=== PATIENT | female | born 1995 | race Asian ===

== ENCOUNTER 2019-03-27 11:33 | Outpatient (CLI) | payer MEDICAID ==
--- NOTE | 2019-03-27 12:23 | Non Stress Test Report ---
Non Stress Test Datetime Report Generated by CPN: 03/27/2019 12:23 DEMOGRAPHIC EGA NST: 40.1 INDICATION Indication for Study: Ordered by Provider MONITORING Monitor Explained: Monitor Explained; Test Explained; Patient Verbalized Understanding Time on Monitor: 03/27/2019 11:48 Time off Monitor: 03/27/2019 12:21 NST Duration: 33 NST INTERVENTIONS NST Interventions: None Physician Notified NST: K Cruz CNM BABY A: [id number] BABY A Movement : Present Contraction Frequency : rare Contraction Frequency : irregular FHR Baseline : 130 FHR Baseline : 135 Accelerations : 15X15 Decelerations : None Variability : Moderate 6-25bpm NST Review: Meets Criteria for Reactive NST NST Review: Meets Criteria for Reactive NST NST Review and Verified By : Lauri John RN NST Results: Reactive NST REPORT Report Trigger: Send Report
[2019-03-27 12:25] LABS: APPEARANCE,URINE SLIGHTLY-CLOUDY; BILIRUBIN,URINE NEGATIVE (NEGATIVE); COLOR,URINE YELLOW; GLUCOSE, URINE NEGATIVE (NEGATIVE); KETONES,URINE NEGATIVE (NEGATIVE); LEUKOCYTE ESTERASE,URINE LARGE (NEGATIVE); NITRITE,URINE NEGATIVE (NEGATIVE); PROTEIN,URINE NEGATIVE (NEGATIVE); UROBILINOGEN,URINE NEGATIVE mg/dL (<2.0)
[2019-03-27 12:48] LABS: URINE AMPHETAMINES SCREEN NEGATIVE; URINE BARBITURATES SCREEN NEGATIVE; URINE BENZODIAZEPINES SCREEN NEGATIVE; URINE COCAINE SCREEN NEGATIVE; URINE MARIJUANA (THC) SCREEN NEGATIVE; URINE METHADONE SCREEN NEGATIVE; URINE PHENCYCLIDINE SCREEN NEGATIVE
== END 2019-03-27 12:34 | disposition home or self-care (01) ==
LOC: LC 11:33
PROVIDERS: ATTEND Student in an Organized Health Care Education/Training Program
PROC: 4A1HXCZ Monitoring of Products of Conception, Cardiac Rate, External Approach (ICD-10-PCS; principal; 2019-03-27)
DX: O36.8130 Decreased fetal movements, third trimester, not applicable or unspecified (principal); O48.0 Post-term pregnancy; Z3A.40 40 weeks gestation of pregnancy
CPT/HCPCS: 59025; 80307; 81005

== ENCOUNTER 2019-03-29 10:27 | Inpatient (IN) | payer MEDICAID ==
[2019-03-29] MEDS ORDERED: RINGERS SOLUTION,LACTATED 1,000 ML IV ONE (10:47)
[2019-03-29] MEDS: RINGERS SOLUTION,LACTATED 1,000 ML IV PRN ×2 (11:04→14:05)
[2019-03-29 11:07] LABS: APPEARANCE,URINE SLIGHTLY-CLOUDY; BILIRUBIN,URINE NEGATIVE (NEGATIVE); COLOR,URINE YELLOW; GLUCOSE, URINE NEGATIVE (NEGATIVE); KETONES,URINE NEGATIVE (NEGATIVE); LEUKOCYTE ESTERASE,URINE MODERATE (NEGATIVE); NITRITE,URINE NEGATIVE (NEGATIVE); PROTEIN,URINE NEGATIVE (NEGATIVE); URINE SPECIFIC GRAVITY 1.019; UROBILINOGEN,URINE NEGATIVE mg/dL (<2.0)
[2019-03-29] MEDS ORDERED: NALBUPHINE HCL INJ 10 MG/1 ML AMPULE ONE ×2 (11:21→20:21)
[2019-03-29 11:24] LABS: ABSOLUTE BASOPHILS # (AUTO) 0.1 10^3/uL (0.0-0.2); ABSOLUTE EOSINOPHILS # (AUTO) 0.1 10^3/uL (0.0-0.6); ABSOLUTE LYMPHOCYTES (AUTO) 1.7 10^3/uL (0.5-4.7); ABSOLUTE MONOCYTES (AUTO) 0.7 10^3/uL (0.1-1.4); ABSOLUTE NEUT (AUTO) 11.1 10^3/uL (1.7-8.2); BASOPHILS % (AUTO) 0.4 % (0-2); EOSINOPHILS % (AUTO) 0.6 % (0-6); HEMATOCRIT 42.3 % (36.0-47.0); HEMOGLOBIN 14.2 g/dL (12.0-15.5); LYMPHOCYTES % (AUTO) 12.7 % (13-45); MEAN CORPUSCULAR HEMOGLOBIN 28.8 pg (27.0-33.4); MEAN CORPUSCULAR HGB CONC 33.4 g/dL (32.0-36.0); MEAN CORPUSCULAR VOLUME 86 fl (80-97); MONOCYTES % (AUTO) 5.2 % (3-13); PLATELET COUNT 258 10^3/uL (150-450); RED BLOOD COUNT 4.91 10^6/uL (3.72-5.28); RED CELL DISTRIBUTION WIDTH 14.9 % (11.5-14.0); SEGMENTED NEUTROPHILS % (AUTO) 81.1 % (42-78); TOTAL CELLS COUNTED % (AUTO) 100 %; WHITE BLOOD COUNT 13.7 10^3/uL (4.0-10.5)
[2019-03-29 11:50] LABS: URINE AMPHETAMINES SCREEN NEGATIVE; URINE BARBITURATES SCREEN NEGATIVE; URINE BENZODIAZEPINES SCREEN NEGATIVE; URINE COCAINE SCREEN NEGATIVE; URINE MARIJUANA (THC) SCREEN NEGATIVE; URINE METHADONE SCREEN NEGATIVE; URINE PHENCYCLIDINE SCREEN NEGATIVE
--- NOTE | 2019-03-29 12:17 | Admission Physical ---
Datetime Report Generated by CPN: 03/29/2019 12:16 CURRENT ADMISSION Chief Complaint: Uterine Contractions Indication for Induction: Not Applicable Admit Impression : Term, Intrauterine ; Active Labor; Intact Membranes Admit Plan: Admit to Unit; Initiate Labor Protocol ALLERGIES Medication Allergies: No Medication Allergies: No Known Allergies (03/29/2019) Latex: Unknown Food Allergies: shellfish? Environmental Allergies: n/a OBSTETRICAL HISTORY EDC: 03/26/2019 00:00 : 1 Para: 0 Term: 0 : 0 SAB: 0 IAB: 0 Ectopic: 0 Livin Cesareans: 0 VBACs: 0 Multiple Births: 0 Gestational Diabetes: No Rh Sensitization: No Incompetent Cervix: No SHAQ: No Infertility: No ART Treatment: No Uterine Anomaly: No IUGR: No Hx Previous C/S: No Macrosomia: No Hx Loss/Stillborn: No PIH: No Hx : No Placenta Previa/Abruption: No Depression/PP Depression: No PTL/PROM: No Post Hemorrhage: No Current Procedures: Ultrasound Obstetrical History Comments: G1-current SEE RECORDS Alcohol: No Marijuana : No Cocaine: No Other Illicit Drugs: No Cigarettes: Never Smoker. 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 INFECTIOUS HISTORY Gonorrhea: No Genital Herpes: No Chlamydia: No Tuberculosis: No Syphilis: No Hepatitis: No HIV/AIDS Exposure: No Rash or Viral Illness: No HPV: No PHYSICAL EXAM General: Normal HEENT: Normal Neurologic: Normal Thyroid: Deferred Heart: Normal Lungs: Normal Breast: Deferred Back: Normal Abdomen: Normal Genitourinary Exam: Normal Extremities: Normal DTRs: Normal Pelvic Type: Adequate Vital Signs: Reviewed VAGINAL EXAM Dilatation: 5 Effacement: 80 Station: -1 Contraction Comments: q 1-3 MEMBRANES Membranes: Intact FETUS A EGA: 40.3 Monitoring: External US FHR- Baseline: 125 Variability: Moderate 6-25bpm Accelerations: 15X15 Decelerations: None FHR Category: Category I Presentation: Vertex Admit Comment: 23yo at 40+3ega presents with regualr uterine ctx. Cvx now 5cm. Admit for active labor. GBS negative. Pt considering not obtaining epidural. From the 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 HTLV distribution data in that area is unreliable but is typically prevelant in population etc - HTLV ordered. Will discuss with NICU and staff as well as patient. late to care at 27wks. anticipate delivery PLANS FOR LABOR AND DELIVERY Labor and Delivery: None Pain Management: Epidural Feeding Preference: Breast Benefit of Breast Feed Discussed: Yes Circumcision: N/A INFORMED CONSENT Informed Consent Obtained: Vaginal Delivery; Risks, Benefits and Alternatives Discussed Signature: with User ID: [email or web address]
[2019-03-29] MEDS ORDERED: EPHEDRINE SULFATE INJ 50 MG/1 ML AMPULE ONE (13:54)
[2019-03-29] MEDS ORDERED: BUPIVACAINE HCL 0.25 % INJ/PF (2.5 MG/1 ML) 30 ML VIAL ONE (13:54)
[2019-03-29] MEDS ORDERED: FENTANYL/BUPIVACAINE/NS/PF 300 MCG/150 ML RTUINJ EPI ONE (13:54)
[2019-03-29] MEDS ORDERED: LIDOCAINE 1% INJ-PF (10 MG/ML) 30 ML SDV ONE (15:05)
[2019-03-29] MEDS ORDERED: MISOPROSTOL 0.2 MG TABLET ONE (15:05)
[2019-03-29] MEDS ORDERED: OXYTOCIN/NORMAL SALINE 20 UNIT/1,000 ML RTUINJ ONE (15:06)
[2019-03-29] MEDS ORDERED: FENTANYL CITRATE INJ/PF 100 MCG/2 ML AMPUL ONE (18:31)
[2019-03-29] MEDS ORDERED: MEASLES,MUMPS&RUBELLA VACC/PF 0.5 ML VIAL SUBCUT PRN (19:02)
[2019-03-29] MEDS ORDERED: PSEUDOEPHEDRINE HCL 30 MG TABLET PO PRN (19:02)
[2019-03-29] MEDS ORDERED: ZOLPIDEM TARTRATE 5 MG TABLET PO PRN (19:02)
[2019-03-29] MEDS ORDERED: DIPH/PERTUSS(ACELL)/TETANUS VAC/PF 0.5 ML SYR (>=10YO) IM PRN (19:02)
[2019-03-29] MEDS ORDERED: DIPHENHYDRAMINE HCL 25 MG CAPSULE PO PRN (19:02)
[2019-03-29] MEDS ORDERED: BENZOCAINE/MENTHOL AEROSOL SPRAY 56 ML TOP PRN (19:02)
[2019-03-29] MEDS ORDERED: PROMETHAZINE HCL 25 MG SUPP.RECT PR PRN (19:02)
[2019-03-29] MEDS ORDERED: DIBUCAINE 1% OINTMENT 56 GM TP PRN (19:02)
[2019-03-29] MEDS ORDERED: NA PHOS,M-B/NA PHOS,DI-BA (ADULT) 133 ML ENEMA PR PRN (19:02)
[2019-03-29] MEDS ORDERED: MISOPROSTOL 0.2 MG TABLET PR PRN (19:02)
[2019-03-29] MEDS ORDERED: PROMETHAZINE HCL INJ 25 MG/1 ML VIAL IV PRN (19:02)
[2019-03-29] MEDS ORDERED: OXYTOCIN/NORMAL SALINE 20 UNIT/1,000 ML RTUINJ IV PRN (19:02)
[2019-03-29] MEDS ORDERED: ACETAMINOPHEN WITH CODEINE #3 TABLET PO PRN ×2 (19:02)
[2019-03-29] MEDS ORDERED: PROMETHAZINE HCL 25 MG TABLET PO PRN (19:02)
[2019-03-29] MEDS ORDERED: GLYCERIN/WITCH HAZEL LEAF 1 EACH MED..WIPE TP PRN (19:02)
[2019-03-29] MEDS ORDERED: ACETAMINOPHEN 650 MG SUPP.RECT PR PRN (19:02)
[2019-03-29] MEDS ORDERED: MAGNESIUM HYDROXIDE SUSP 30 ML UDCUP PO PRN (19:02)
[2019-03-29] MEDS ORDERED: CEFAZOLIN 1 GM/D5W RTU 2 GM/100 ML RTUPB IV ONE (19:04)
[2019-03-29] MEDS ORDERED: IBUPROFEN 800 MG TABLET ONE (19:39)
[2019-03-29] MEDS ORDERED: ACETAMINOPHEN WITH CODEINE #3 TABLET ONE (19:39)
[2019-03-29] MEDS ORDERED: BENZOCAINE/MENTHOL AEROSOL SPRAY 56 ML ONE (20:16)
[2019-03-29] MEDS ORDERED: CEFAZOLIN 2 GM/D5W RTU 2 GM/50 ML RTUPB IV ONE (21:00)
[2019-03-29] MEDS: FAMOTIDINE 20 MG TABLET PO SCH (22:49)
[2019-03-29] MEDS: IBUPROFEN 800 MG TABLET PO SCH (22:50)
[2019-03-30] MEDS: IBUPROFEN 800 MG TABLET PO SCH ×3 (05:09→22:38)
[2019-03-30 06:50] LABS: HEMATOCRIT 34.8 % (36.0-47.0); MEAN CORPUSCULAR HEMOGLOBIN 28.8 pg (27.0-33.4); MEAN CORPUSCULAR HGB CONC 33.3 g/dL (32.0-36.0); MEAN CORPUSCULAR VOLUME 87 fl (80-97); PLATELET COUNT 239 10^3/uL (150-450); RED BLOOD COUNT 4.02 10^6/uL (3.72-5.28); RED CELL DISTRIBUTION WIDTH 14.4 % (11.5-14.0); WHITE BLOOD COUNT 14.6 10^3/uL (4.0-10.5)
[2019-03-30 06:56] LABS: HEMOGLOBIN 11.6 g/dL (12.0-15.5)
--- NOTE | 2019-03-30 09:31 | PDOC PROGRESS REPORT ---
Subjective-OB Progress Note for:: 03/30/19 Subjective: Doing ok, eating, kraft in place, still has not been out of bed, will get OOB today, breast feeding, Physical Exam (OB) Vital Signs: Temp Pulse Resp BP Pulse Ox 97.7 F 65 12 107/63 100 03/30/19 07:42 03/30/19 07:42 03/30/19 07:42 03/30/19 07:42 03/30/19 07:42 Intake & Output 03/29/19 03/30/19 03/31/19 06:59 06:59 06:59 Intake Total 377 Output Total 1978 Balance -1601 Weight 79.5 kg - Lochia Lochia Amount: Scant < 10 ml Lochia Color: Rubra/Red - Abdomen Description: Soft Hernia Present: No Fundal Description: Firm, Midline Fundal Height: u/u - u/2 Objective-Diagnostic Laboratory: 03/30/19 06:26 03/29/19 03/29/19 03/29/19 10:30 11:00 11:00 WBC 13.7 H RBC 4.91 Hgb 14.2 Hct 42.3 MCV 86 MCH 28.8 MCHC 33.4 RDW 14.9 H Plt Count 258 Seg Neutrophils % 81.1 H Urine Color YELLOW Urine Appearance SLIGHTLY-CLOUDY Urine pH 6.0 Ur Specific [place] 1.019 Urine Protein NEGATIVE Urine Glucose (UA) NEGATIVE Urine Ketones NEGATIVE Urine Blood MODERATE H Urine Nitrite NEGATIVE Ur Leukocyte Esterase MODERATE H Blood Type O POSITIVE Antibody Screen NEGATIVE 03/30/19 06:26 WBC 14.6 H RBC 4.02 Hgb 11.6 L D Hct 34.8 L MCV 87 MCH 28.8 MCHC 33.3 RDW 14.4 H Plt Count 239 Seg Neutrophils % Urine Color Urine Appearance Urine pH Ur Specific [place] Urine Protein Urine Glucose (UA) Urine Ketones Urine Blood Urine Nitrite Ur Leukocyte Esterase Blood Type Antibody Screen Assessment and Plan(PN) - Assessment and Plan (1) Obstetrical laceration, third degree Is this a current diagnosis for this admission?: Yes (2) Meconium in amniotic fluid Is this a current diagnosis for this admission?: Yes (3) Active labor at term Is this a current diagnosis for this admission?: Yes - Time Spent with Patient Time with patient: Less than 15 minutes Medications reviewed and adjusted accordingly: Yes - Disposition Anticipated Discharge: Home Within: within 24 hours
[2019-03-30] MEDS: FAMOTIDINE 20 MG TABLET PO SCH ×2 (10:11→22:38)
[2019-03-30] MEDS: PRENATAL VITAMIN W DHA CAPSULE PO SCH (10:11)
[2019-03-30] MEDS: FERROUS SULFATE 325 MG TABLET PO SCH ×2 (10:11→17:12)
[2019-03-30] MEDS: SENNOSIDES/DOCUSATE 8.6-50 MG 1 EACH TABLET PO SCH (10:11)
[2019-03-30] MEDS: DOCUSATE SODIUM 100 MG CAPSULE PO SCH ×2 (10:11→17:12)
[2019-03-31] MEDS: IBUPROFEN 800 MG TABLET PO SCH ×2 (05:32→14:03)
[2019-03-31 07:57] VITALS: BP 126/70
[2019-03-31] MEDS: PRENATAL VITAMIN W DHA CAPSULE PO SCH (10:03)
[2019-03-31] MEDS: FERROUS SULFATE 325 MG TABLET PO SCH ×2 (10:03→18:56)
[2019-03-31] MEDS: SENNOSIDES/DOCUSATE 8.6-50 MG 1 EACH TABLET PO SCH (10:03)
[2019-03-31] MEDS: DOCUSATE SODIUM 100 MG CAPSULE PO SCH ×2 (10:03→18:54)
[2019-03-31] MEDS: FAMOTIDINE 20 MG TABLET PO SCH (10:03)
--- NOTE | 2019-03-31 12:41 | PDOC DISCHARGE SUMMARY ---
Final Diagnosis Discharge Date: 03/31/19 - Final Diagnosis (1) Active labor at term Is this a current diagnosis for this admission?: Yes (2) Meconium in amniotic fluid Is this a current diagnosis for this admission?: Yes (3) Obstetrical laceration, third degree Is this a current diagnosis for this admission?: Yes Discharge Data - Discharge Medication Prescriptions: Docusate Sodium [Colace 100 mg Capsule] 100 mg PO BID #60 capsule Ibuprofen [Motrin 800 mg Tablet] 800 mg PO Q8HP PRN #90 tablet PRN Reason: Acetaminophen with Codeine [Tylenol #3 Tablet] 1 each PO Q4HP PRN #20 tablet PRN Reason: Home Medications: Vit,Calc76/Iron/Folic [Prenatabs Rx Tablet] 1 tab PO DAILY 03/27/19 Acetaminophen with Codeine [Tylenol #3 Tablet] 1 each PO Q4HP PRN #20 tablet 03/31/19 Docusate Sodium [Colace 100 mg Capsule] 100 mg PO BID #60 capsule 03/31/19 Ibuprofen [Motrin 800 mg Tablet] 800 mg PO Q8HP PRN #90 tablet 03/31/19 Procedures: NST Intrapartum Procedure(s): Spontaneous Vaginal Delivery Complication(s): Laceration-Perineal Laceration-Degree: 3rd - Diagnosis Test Laboratory: Temp Pulse Resp BP Pulse Ox 98.3 F 74 16 126/70 H 98 03/31/19 07:45 03/31/19 07:45 03/31/19 07:45 03/31/19 07:45 03/31/19 07:45 03/29/19 03/29/19 03/30/19 10:30 11:00 06:26 RBC 4.91 4.02 Hgb 14.2 11.6 L D Hct 42.3 34.8 L Urine Opiates Screen NEGATIVE - Discharge information/Instructions Discharge Activity: Balance Activity w/Rest, Pelvic Rest Discharge Diet: Regular Disposition: HOME, SELF-CARE Follow up with: [facility] in: 1, Weeks
--- NOTE | 2019-04-01 09:57 | Delivery Summary ---
Del Sum A-C Datetime Report Generated by CPN: 04/01/2019 09:57 DELIVERY PERSONNEL DELIVERY PERSONNEL: [id number] Delivery Doctor:: Amanda Rendon MD Labor and Delivery Nurse:: Zoey Hargrove RNnursing consultant Nurse:: PRETTY Rojas Nursery Nurse:: Griselda Junior RN Nursery Nurse:: Maritza Johnson RN Rn Cvor/ROTARY DRILL OPERATOR HELPER: Marly Lemon, ELECTRICAL ASSEMBLY TECHNICIAN MATERNAL INFORMATION Delivery Anesthesia: Epidural Medications After Delivery: Pitocin Bolus-Please Comment; Cytotec 1000mcg Per Rectum/Vagina Meds After Delivery Comment: Pitocin 20 units in 1000 ml nss open for bolus Delivery QBL: 631 Delivery QBL Comment: Total: 827 Maternal Complications: None Provider Comments: VFI delivered in TOY presentation. As nuchal cord was being reduced patient continued pushing and left shoulder caused perineal laceration to extend to 3rd degree. Shoulders and body delivered without difficulty. Cord doubly clamped and cut and to maternal abdomen for NRP. Placenta delivered intact spontaneously. FF at U. 3rd degree laceration repaired in usual fashion with good hemostasis. (Annotations: Data stored by N on behalf of user) LABOR SUMMARY EDC: 03/26/2019 00:00 No. Babies in Womb: 1 Attempted: No Labor Anesthesia: Epidural LABOR INFORMATION Reason for Induction: Not Applicable Onset of Labor: 03/28/2019 23:00 Complete Dilatation: 03/29/2019 16:46 Oxytocin: N/A Group B Beta Strep: negative Steroids Given: None Reason Steroids Not Administered: Not Applicable MEMBRANES Membranes Rupture Method: Artificial Rupture of Membranes: 03/29/2019 16:08 Length of Rupture (hr): 2.22 Amniotic Fluid Color: Moderate Meconium Amniotic Fluid Amount: Small Amniotic Fluid Odor: Normal STAGES OF LABOR Stage 1 hr: 17 Stage 1 min: 46 Stage 2 hr: 1 Stage 2 min: 35 Stage 3 hr: 0 Stage 3 min: 2 Total Time in Labor hr: 19 Total Time in Labor min: 23 VAGINAL DELIVERY Episiotomy: None Laceration #1: Perineal Laceration Extension #1: Third Degree, IIIb (Greater than 50 percent ext anal sphincter thickness torn) Laceration Repair: Yes Laceration Repair Note: 3B laceration repaired in layered fashion taking care to reapproximate sphincter and remainder of laceration Sponge Count Correct: N/A Sharps Count Correct: N/A CSECTION DELIVERY Primary Indication: N/A Secondary Indication: N/A CSection Incidence: N/A Labor: N/A Elective: N/A CSection Incision: N/A BABY A INFORMATION Infant Delivery Date/Time: 03/29/2019 18:21 Method of Delivery: Vaginal Method of Delivery: Vaginal Born in Route : No : N/A Forceps: N/A Vacuum Extraction: N/A Shoulder Dystocia : No PRESENTATION/POSITION BABY A Presentation: Cephalic Cephalic Presentation: Vertex Vertex Position: Left Occipital Anterior Breech Presentation: N/A PLACENTA INFORMATION BABY A Placenta Delivery Time : 03/29/2019 18:23 Placenta Method of Delivery: Spontaneous Placenta Status: Delivered SCORES BABY A Heart Rate 1 min: >100 bpm Resp Effort 1 min: Slow, Irregular Reflex Irritability 1 min: Cough or Sneeze or Pulls Away Muscle Tone 1 min: Active Motion Color 1 min: Body Callahan, Extremities Blue Resuscitation Effort 1 min: Tactile Stimulation SCORE 1 MIN: 8 Heart Rate 5 min: >100 bpm Resp Effort 5 min: Good Cry Reflex Irritability 5 min: Cough or Sneeze or Pulls Away Muscle Tone 5 min: Active Motion Color 5 min: Body Callahan, Extremities Blue Resuscitation Effort 5 min: N/A SCORE 5 MIN: 9 INFANT INFORMATION BABY A Gestational Age at Delivery: 40.3 Gestational Status: Full Term- 39- 40.6 Weeks Infant Outcome : Liveborn Infant Condition : Stable Sex: Female Infant Sex: Female IDENTIFICATION BABY A Verification Date/Time: 03/29/2019 18:43 ID Band Number: [id number] Mother's Name Verified: Yes Infant RN Verifying : B Baidy RN/F Lemon ELECTRICAL ASSEMBLY TECHNICIAN WEIGHT/LENGTH BABY A Birthweight (gm): 3419 Infant Weight (lb): 7 Weight (oz): 9 Infant Length (in): 20.25 Length (cm): 51.44 CORD INFORMATION BABY A No. Cord Vessels: 3 Nuchal Cord : Around Neck x1, Loose Cord Blood Taken: No-Annotate Suction: None ASSESSMENT BABY A Complications: Multiple Variable Decels; Meconium Physical Findings at Delivery: Caput Succedaneum; Molding of the Head Respirations: Appears Normal Skin to Skin: Yes Director Traffic And Planning/ALS Called : No Care By: Griselda Jo RN Transferred To: Remains with Mother BABY B INFORMATION : N/A
== END 2019-03-31 19:08 | disposition home or self-care (01) | DRG 768 ==
LOC: LC 10:27 → LR 11:01 → 2S 21:15
PROVIDERS: ADMIT Student in an Organized Health Care Education/Training Program; ATTEND Student in an Organized Health Care Education/Training Program
PROC: 10E0XZZ Delivery of Products of Conception, External Approach (ICD-10-PCS; principal; 2019-03-29)
PROC: 0DQR0ZZ Repair Anal Sphincter, Open Approach (ICD-10-PCS; 2019-03-29)
PROC: 10907ZC Drainage of Amniotic Fluid, Therapeutic from Products of Conception, Via Natural or Artificial Opening (ICD-10-PCS; 2019-03-29)
DX: O69.81X0 Labor and delivery complicated by cord around neck, without compression, not applicable or unspecified (principal); O70.22 Third degree perineal laceration during delivery, IIIb; Z37.0 Single live birth; O77.0 Labor and delivery complicated by meconium in amniotic fluid; O76 Abnormality in fetal heart rate and rhythm complicating labor and delivery; Z3A.40 40 weeks gestation of pregnancy
CPT/HCPCS: 36415; 80307; 81005; 85025; 85027; 86592; 86790; 86850; 86900; 86901; J0690; J2300; J2590; J3010; J3490